=== PATIENT | female | born 1995 | race Caucasian/White ===

== ENCOUNTER 2016-06-19 22:44 | Inpatient (IN) | payer OTHER ==
[2016-06-20 00:23] LABS: Basophils # (A) 0.1 k/uL (0-0.2); Basophils % (A) 1 %; CH 29.7; CHCM 33.6; Eosinophils # (A) 0.3 k/uL (0-0.7); Eosinophils % (A) 3 %; HCT 41.7 % (34.0-46.0); HDW 2.49; Luc # (Auto) 0.09; Luc % (Auto) 1; Lymphocytes # (A) 3.8 k/uL (1.0-4.8); Lymphocytes % (A) 40 %; MCH 29.6 pg (25.0-35.0); MCHC 33.4 g/dL (31.0-37.0); MCV 88.6 fL (80.0-100.0); Mean Platelet Volume 6.7; Monocytes # (A) 0.3 k/uL (0-1.0); Monocytes % (A) 3 %; Neutrophils % (A) 52 %; RDW 13.7 % (11.5-15.5); WBC 9.6 k/uL (4.0-11.0); WBC (Perox) 9.69
[2016-06-20] MEDS ORDERED: ONDANSETRON 4 MG/2 ML VIAL IVP STA (00:30)
[2016-06-20 00:31] LABS: Appearance,Urine Cloudy (Clear); Bacteria,Urine Occasional /hpf; Bilirubin,Urine Negative (Negative); Glucose,Urine (UA) Negative (Negative); Ketones,Urine Negative (Negative); Leukocyte Esterase,Urine Large (Negative); Nitrite,Urine Negative (Negative); Particle Count 9487; Protein,Urine Trace (Negative); RBC,Urine 1 /hpf (0-5); Specific Gravity,Urine 1.017 (1.001-1.035); Squamous Epithelial Cell,Urine 20 /hpf (0-4); UA Billing (MACRO vs. MICRO) MICRO; Urobilinogen,Urine <2.0 mg/dL (<2.0); WBC,Urine 6 /hpf (0-5)
[2016-06-20 00:32] LABS: Amylase <30 U/L (30-110); Anion Gap 12 mmol/L; Calcium 9.4 mg/dL (8.4-10.2); Carbon Dioxide 25 mmol/L (22-30); Chloride 105 mmol/L (98-107); Glucose 77 mg/dL (74-99); Non-African American GFR(MDRD) >60 (>60 ml/min/1.73 sqM); Sodium 142 mmol/L (137-145); Total Bilirubin 0.6 mg/dL (0.2-1.3); Total Protein 7.7 g/dL (6.3-8.2)
[2016-06-20 00:34] LABS: HGB 13.9 gm/dL (11.4-16.0)
[2016-06-20 00:48] LABS: HCG,Quantitative Serum <2.4 mIU/mL
[2016-06-20 00:49] LABS: ALT 35 U/L (9-52); AST 32 U/L (14-36); Alkaline Phosphatase 77 U/L (38-126); Blood Urea Nitrogen 15 mg/dL (7-17); Potassium 4.7 mmol/L (3.5-5.1)
[2016-06-20] MEDS ORDERED: MORPHINE SULFATE 4 MG/ML SYRINGE IV STA (00:58)
[2016-06-20] MEDS ORDERED: SODIUM CHLORIDE 0.9% 500 ML IV STA (00:58)
--- NOTE | 2016-06-20 01:39 | CT ---
EXAMINATION TYPE: CT abdomen pelvis wo con DATE OF EXAM: 06/20/2016 1:26 AM COMPARISON: 11/23/2014 HISTORY: Abd pain x2 hours CT DLP: 853.00 mGycm Automated exposure control for dose reduction was used. TECHNIQUE: Helical acquisition of images was performed from the lung bases through the pelvis. FINDINGS: Lung bases are clear. There is no pleural effusion. Heart size is normal. There is a small hiatal her ross. Liver spleen pancreas gallbladder appear normal. Bile ducts are not dilated. There is no adrenal mass. Kidneys have normal size and contour. There is no hydronephrosis. Ureters are not dilated. The re is a somewhat tubular structure in the right lower quadrant with calcifications at could be a thic kened appendix with appendicoliths. Bladder distends smoothly. There is no sign of a pelvic mass. I see no intestinal wall thickening. Th e bony structures are intact. There is no evidence of retroperitoneal adenopathy. IMPRESSION: THERE ARE FINDINGS OF A THICKENED APPENDIX THAT MEASURES MORE THAN 1 CM WITH PROBABLE APPENDICOLITHS. THERE IS MILD SURROUNDING INFLAMMATORY CHANGE AND THIS IS CONSISTENT WITH ACUTE APPENDICITIS THAT IS NEW COMPARED TO OLD EXAM. NO ABSCESS SEEN.
[2016-06-20] MEDS ORDERED: NALOXONE 0.4 MG/ML 1 ML VIAL IV PRN ×2 (01:53→10:36)
[2016-06-20] MEDS ORDERED: ONDANSETRON 4 MG/2 ML VIAL IVP PRN (01:53)
[2016-06-20] MEDS ORDERED: PIPERACILLIN-TAZOBACTAM 3.375 GM in DEXTROSE/WATER 1 50ML.BAG IVPB STA (01:56)
--- NOTE | 2016-06-20 01:58 | ED ---
Abdominal Pain HPI - General Chief Complaint: Abdominal Pain Stated Complaint: Abdominal Pain Time Seen by Provider: 06/19/16 23:33 Source: patient, RN notes reviewed Mode of arrival: ambulatory Limitations: no limitations - History of Present Illness Initial Comments: This patient is 20-year-old woman who presents with a complaint of having bilateral lower abdominal pain that developed approximately 2 hours prior to arrival while she was "just sitting." The patient indicates that the pain is severe, constant, and she has a difficult time characterizing it. She states it gets worse if she presses her abdomen and with some movements. She also started having nausea and has had a couple of episodes of vomiting without noticing any blood or bile. She states her last bowel movement was earlier and was normal. She denies any change in her urination. The patient did have a section delivery about 6 weeks ago, and states she had been doing well following that. She did have a period last week that seemed approximately normal. She states she did resume sexual activity, with the same partner and she has not been having any discharge or pain with intercourse. MD Complaint: abdominal pain -: hour(s) Location: LLQ, RLQ Radiation: none Migration to: no migration Severity: severe Quality: aching Consistency: constant Improves With: nothing Worsens With: movement, other (palpation) Associated Symptoms: nausea, vomiting - Related Data Home Medications Medication Instructions Recorded Confirmed Control Unknown 1 tab PO DAILY 06/19/16 06/19/16 Previous Rx's Medication Instructions Recorded HYDROcodone/APAP 7.5-325MG [[place] 1 tab PO Q6HR PRN #28 tab 06/21/16 7.5-325] Allergies Allergy/AdvReac Type Severity Reaction Status Date / Time No Known Allergies Allergy Verified 06/19/16 23:22 Review of Systems ROS Statement: Those systems with pertinent positive or pertinent negative responses have been documented in the HPI. ROS Other: All systems not noted in ROS Statement are negative. Constitutional: Denies: fever Respiratory: Denies: cough, dyspnea Cardiovascular: Denies: chest pain, palpitations, edema Gastrointestinal: Reports: abdominal pain, nausea, vomiting. Denies: diarrhea, constipation, hematemesis, melena, hematochezia Genitourinary: Denies: dysuria, hematuria, abnormal menses Musculoskeletal: Denies: back pain Neurological: Denies: headache, weakness, numbness Past Medical History Past Medical History: No Reported History Additional Past Medical History / Comment(s): miscarriage at 7 weeks, ectopic History of Any Multi-Drug Resistant Organisms: None Reported Past Surgical History: Adenoidectomy, Section, Tonsillectomy Past Anesthesia/Blood Transfusion Reactions: No Reported Reaction Past Psychological History: No Psychological Hx Reported Smoking Status: Never smoker Past Alcohol Use History: None Reported Past Drug Use History: None Reported - Past Family History Mother Family Medical History: No Reported History Father Family Medical History: Myocardial Infarction ([place]) General Exam Limitations: no limitations Course Vital Signs 06/19/16 06/20/16 06/20/16 23:35 00:38 01:50 Temperature 97.7 F 98.8 F 98.8 F Pulse Rate 60 78 85 Respiratory 18 20 16 Rate Blood Pressure 139/96 128/91 112/73 O2 Sat by Pulse 100 100 98 Oximetry 06/20/16 02:30 Temperature 99.1 F Pulse Rate 77 Respiratory 18 Rate Blood Pressure 120/83 O2 Sat by Pulse 99 Oximetry Medical Decision Making - Medical Decision Making Patient is 20-year-old woman with lower abdominal pain and heaviness on the exam. The workup does show probable appendicitis, and I discussed case with Dr. Siddiqui, who is a surgeon on-call and will admit the patient for probable appendectomy first thing. Patient maintained nothing by mouth and antibiotic coverage started. She is feeling slightly better with analgesics and antiemetics. - Lab Data Result diagrams: 06/20/16 00:10 06/20/16 00:10 Lab Results 06/20/16 06/20/16 06/20/16 Range/Units 00:10 00:10 00:10 WBC 9.6 (4.0-11.0) k/uL RBC 4.70 (3.80-5.40) m/uL Hgb 13.9 D (11.4-16.0) gm/dL Hct 41.7 (34.0-46.0) % MCV 88.6 (80.0-100.0) fL MCH 29.6 (25.0-35.0) pg MCHC 33.4 (31.0-37.0) g/dL RDW 13.7 (11.5-15.5) % Plt Count 227 (150-450) k/uL Neutrophils % 52 % Lymphocytes % 40 % Monocytes % 3 % Eosinophils % 3 % Basophils % 1 % Neutrophils # 5.0 (1.3-7.7) k/uL Lymphocytes # 3.8 (1.0-4.8) k/uL Monocytes # 0.3 (0-1.0) k/uL Eosinophils # 0.3 (0-0.7) k/uL Basophils # 0.1 (0-0.2) k/uL Sodium 142 (137-145) mmol/L Potassium 4.7 (3.5-5.1) mmol/L Chloride 105 (98-107) mmol/L Carbon Dioxide 25 (22-30) mmol/L Anion Gap 12 mmol/L BUN 15 (7-17) mg/dL Creatinine 0.90 (0.52-1.04) mg/dL Est GFR (MDRD) Af Amer >60 (>60 ml/min/1.73 sqM) Est GFR (MDRD) Non-Af >60 (>60 ml/min/1.73 sqM) Glucose 77 (74-99) mg/dL Calcium 9.4 (8.4-10.2) mg/dL Total Bilirubin 0.6 (0.2-1.3) mg/dL AST 32 (14-36) U/L ALT 35 (9-52) U/L Alkaline Phosphatase 77 (38-126) U/L Total Protein 7.7 (6.3-8.2) g/dL Albumin 4.3 (3.5-5.0) g/dL Amylase <30 L (30-110) U/L Lipase 98 (23-300) U/L HCG, Quant <2.4 mIU/mL Urine Color Yellow Urine Appearance Cloudy H (Clear) Urine pH 7.0 (5.0-8.0) Ur Specific [place] 1.017 (1.001-1.035) Urine Protein Trace H (Negative) Urine Glucose (UA) Negative (Negative) Urine Ketones Negative (Negative) Urine Blood Trace H (Negative) Urine Nitrate Negative (Negative) Urine Bilirubin Negative (Negative) Urine Urobilinogen <2.0 (<2.0) mg/dL Ur Leukocyte Esterase Large H (Negative) Urine RBC 1 (0-5) /hpf Urine WBC 6 H (0-5) /hpf Ur Squamous Epith Cells 20 H (0-4) /hpf Urine Bacteria Occasional H (None) /hpf Blood Type Blood Type Recheck 06/20/16 Range/Units 00:20 WBC (4.0-11.0) k/uL RBC (3.80-5.40) m/uL Hgb (11.4-16.0) gm/dL Hct (34.0-46.0) % MCV (80.0-100.0) fL MCH (25.0-35.0) pg MCHC (31.0-37.0) g/dL RDW (11.5-15.5) % Plt Count (150-450) k/uL Neutrophils % % Lymphocytes % % Monocytes % % Eosinophils % % Basophils % % Neutrophils # (1.3-7.7) k/uL Lymphocytes # (1.0-4.8) k/uL Monocytes # (0-1.0) k/uL Eosinophils # (0-0.7) k/uL Basophils # (0-0.2) k/uL Sodium (137-145) mmol/L Potassium (3.5-5.1) mmol/L Chloride (98-107) mmol/L Carbon Dioxide (22-30) mmol/L Anion Gap mmol/L BUN (7-17) mg/dL Creatinine (0.52-1.04) mg/dL Est GFR (MDRD) Af Amer (>60 ml/min/1.73 sqM) Est GFR (MDRD) Non-Af (>60 ml/min/1.73 sqM) Glucose (74-99) mg/dL Calcium (8.4-10.2) mg/dL Total Bilirubin (0.2-1.3) mg/dL AST (14-36) U/L ALT (9-52) U/L Alkaline Phosphatase (38-126) U/L Total Protein (6.3-8.2) g/dL Albumin (3.5-5.0) g/dL Amylase (30-110) U/L Lipase (23-300) U/L HCG, Quant mIU/mL Urine Color Urine Appearance (Clear) Urine pH (5.0-8.0) Ur Specific [place] (1.001-1.035) Urine Protein (Negative) Urine Glucose (UA) (Negative) Urine Ketones (Negative) Urine Blood (Negative) Urine Nitrate (Negative) Urine Bilirubin (Negative) Urine Urobilinogen (<2.0) mg/dL Ur Leukocyte Esterase (Negative) Urine RBC (0-5) /hpf Urine WBC (0-5) /hpf Ur Squamous Epith Cells (0-4) /hpf Urine Bacteria (None) /hpf Blood Type A Positive Blood Type Recheck No Disposition Clinical Impression: Abdominal pain, Acute appendicitis Disposition: ADMITTED IP TO THIS [facility] Condition: Good
[2016-06-20 02:50] VITALS: BMI 32.1
[2016-06-20] MEDS: MORPHINE SULFATE 4 MG/ML SYRINGE IV PRN ×4 (03:57→20:46)
[2016-06-20] MEDS: SODIUM CHLORIDE 0.9% 1,000 ML IV SCH ×3 (03:58→22:32)
[2016-06-20] MEDS: PANTOPRAZOLE 40 MG/10 ML VIAL IV SCH (08:05)
[2016-06-20] MEDS ORDERED: IV FLUID CONTINUATION 1,000 ML IV ONE (08:34)
[2016-06-20] MEDS ORDERED: ONDANSETRON 4 MG/2 ML VIAL IVP ONE (09:15)
[2016-06-20] MEDS ORDERED: SCOPOLAMINE 1.5MG/72HR PATCH TRANSDERM ONE (09:15)
[2016-06-20] MEDS ORDERED: DEXAMETHASONE SOD PHOS (MDV) 100 MG/10 ML VIAL IVP ONE (09:15)
--- NOTE | 2016-06-20 09:36 | P.GSHP ---
History of Present Illness H&P Date: 06/20/16 Chief Complaint: Appendicitis This a 20-year-old female who presents emergency room last night with complaints of right lower quadrant pain. The patient had a CAT scan performed which showed evidence appendicitis. The patient is presently 6 weeks from . - Constitutional Constitutional: Reports as per HPI Past Medical History Past Medical History: No Reported History Additional Past Medical History / Comment(s): miscarriage at 7 weeks, ectopic History of Any Multi-Drug Resistant Organisms: None Reported Past Surgical History: Adenoidectomy, Section, Tonsillectomy Past Anesthesia/Blood Transfusion Reactions: No Reported Reaction Past Psychological History: No Psychological Hx Reported Smoking Status: Never smoker Past Alcohol Use History: None Reported Past Drug Use History: None Reported - Past Family History Mother Family Medical History: No Reported History Father Family Medical History: Myocardial Infarction ([place]) Medications and Allergies Home Medications Medication Instructions Recorded Confirmed Type Control Unknown 1 tab PO DAILY 06/19/16 06/19/16 History Allergies Allergy/AdvReac Type Severity Reaction Status Date / Time No Known Allergies Allergy Verified 06/19/16 23:22 Surgical - Exam Vital Signs Temp Pulse Resp BP Pulse Ox 97.7 F 60 18 139/96 100 06/19/16 23:35 06/19/16 23:35 06/19/16 23:35 06/19/16 23:35 06/19/16 23:35 - General well developed, no distress - Eyes PERRL - ENT normal pinna - Neck no masses - Respiratory normal expansion - Cardiovascular Rhythm: regular - Abdomen Right lower quadrant pain Abdomen: soft Results - Labs 06/20/16 00:10 06/20/16 00:10 - Imaging CT scan - chest: report reviewed (CT shows evidence of dilated appendix) Assessment and Plan Plan: Acute appendicitis. We will perform laparoscopic appendectomy.
[2016-06-20] MEDS ORDERED: MIDAZOLAM 2 MG/2 ML VIAL IVP ONE (09:45)
[2016-06-20] MEDS ORDERED: fentaNYL (PF) 50 MCG/ML 2 ML AMP IV ONE (09:46)
[2016-06-20] MEDS ORDERED: HEPARIN SODIUM,PORCINE 5,000 UNIT/ML 1 ML VIAL SQ ONE (09:59)
[2016-06-20] MEDS ORDERED: KETOROLAC 30 MG/ML 1 ML VIAL ONE (10:00)
[2016-06-20] MEDS ORDERED: PROPOFOL 10 MG/ML 20 ML VIAL IV ONE (10:00)
[2016-06-20] MEDS ORDERED: GLYCOPYRROLATE 0.2 MG/ML 2 ML VIAL ONE (10:00)
[2016-06-20] MEDS ORDERED: LIDOCAINE 1% INJ 10MG/ML (20 ML MDV) ONE (10:00)
[2016-06-20] MEDS ORDERED: SUCCINYLCHOLINE CHLORIDE 100 MG/5 ML SYR IV ONE (10:00)
[2016-06-20] MEDS ORDERED: ROCURONIUM BROMIDE 10 MG/ML 10 ML VIAL IV ONE (10:00)
[2016-06-20] MEDS ORDERED: NEOSTIGMINE 1 MG/ML 10 ML VIAL ONE (10:00)
[2016-06-20] MEDS ORDERED: fentaNYL (PF) 50 MCG/ML 2 ML AMP ONE (10:00)
[2016-06-20] MEDS ORDERED: BUPIVACAIN-EPI 0.25%-1:200,000 30 ML VIAL SQ ONE (10:30)
[2016-06-20] MEDS ORDERED: LACTATED RINGERS 1,000 ML IV ONE (10:36)
--- NOTE | 2016-06-20 10:36 | P.OP ---
Date of Procedure: 06/20/16 Preoperative Diagnosis: Acute appendicitis Postoperative Diagnosis: Acute appendicitis Procedure(s) Performed: Laparoscopic appendectomy Anesthesia: ABAA Surgeon: Ronald Siddiqui Estimated Blood Loss (ml): 5 Pathology: other (Appendix) Condition: stable Disposition: PACU Description of Procedure: Harmonic appendectomy
[2016-06-20] MEDS: PIPERACILLIN-TAZOBACTAM 3.375 GM in DEXTROSE/WATER 1 50ML.BAG IVPB SCH ×2 (12:06→18:32)
[2016-06-20] MEDS ORDERED: HYDROcodone/APAP 5-325MG 1 EACH TAB PO PRN (20:16)
[2016-06-20] MEDS ORDERED: HYDROmorphone 1 MG/ML 1 ML SYRINGE IM PRN (20:56)
[2016-06-21] MEDS: PIPERACILLIN-TAZOBACTAM 3.375 GM in DEXTROSE/WATER 1 50ML.BAG IVPB SCH ×2 (02:08→13:18)
[2016-06-21] MEDS: HYDROcodone/APAP 5-325MG 1 EACH TAB PO PRN ×2 (06:29→13:16)
[2016-06-21 07:43] VITALS: RESP 20
[2016-06-21] MEDS: SODIUM CHLORIDE 0.9% 1,000 ML IV SCH (09:14)
--- NOTE | 2016-06-21 10:18 | P.DS ---
Providers Date of admission: 06/20/16 01:53 Expected date of discharge: 06/21/16 Attending physician: Ronald Siddiqui Primary care physician: Stated None Hospital Course: Patient is a 20-year-old female with medical history significant for , patient is 6 weeks . Patient presenting to the emergency department with complaints of right lower quadrant abdominal pain. CAT scan showed evidence of appendicitis. Patient underwent emergent laparoscopic appendectomy. Patient tolerated procedure well. Patient was noted to have a heart rate in the 40s to 50s with stable blood pressure control. No evidence of chest pain. Patient was felt stable for discharge to home with follow-up etiology consult in the outpatient setting. Discharge diagnoses: 1. Acute appendicitis status post laparoscopic appendectomy. The above impression and plan have been discussed and directed by Dr. Siddiqui. Parisa BLOUNT acting as scribe for Dr. Siddiqui. Pertinent Studies: Abdomen/pelvis CT Procedures: Laparoscopic appendectomy Patient Condition at Discharge: Good Plan - Discharge Summary New Discharge Prescriptions: HYDROcodone/APAP 7.5-325MG [[place] 7.5-325] 1 tab PO Q6HR PRN #28 tab PRN Reason: Pain Discharge Medication List Control Unknown 1 tab PO DAILY 06/19/16 [History] HYDROcodone/APAP 7.5-325MG [[place] 7.5-325] 1 tab PO Q6HR PRN #28 tab 06/21/16 [ Rx] Follow up Appointment(s)/Referral(s): Ronald Siddiqui MD [STAFF PHYSICIAN] - 1 Week [facility] [Provider Group] - 1 Week None,Stated [Primary Care Provider] - 1-2 days Patient Instructions/Handouts: Laparoscopic Appendectomy (DC) Activity/Diet/Wound Care/Special Instructions: No heavy lifting, pushing, or pulling items greater than 10 pounds. Regular diet Shower daily, no soaking in bath tubs, pools, or hot tubs. No driving while taking pain medication. Notify surgeon with any signs or symptoms of infection, increased pain, or not tolerating diet. Discharge Disposition: HOME SELF-CARE
[2016-06-21] MEDS: PANTOPRAZOLE 40 MG/10 ML VIAL IV SCH (13:10)
[2016-06-21 13:17] VITALS: BP 151/93; PULSE 64; TEMP 97.7
== END 2016-06-21 14:08 | disposition home or self-care (01) | DRG 343 ==
LOC: EC 22:44 → 6PED 06-20 01:53
PROVIDERS: ADMIT Surgery; ATTEND Surgery
PROC: 0DTJ4ZZ Resection of Appendix, Percutaneous Endoscopic Approach (ICD-10-PCS; principal; 2016-06-20 08:30)
DX: K35.80 Unspecified acute appendicitis (principal); Z79.3 Long term (current) use of hormonal contraceptives
CPT/HCPCS: 36415; 74176; 80053; 81001; 81025; 82150; 83690; 84702; 85025; 86900; 86901; 88304; 96361; 96375; 99285

== ENCOUNTER → 2018-01-07 | Outpatient (CLI) | payer MEDICAID ==
[2018-01-07 16:41] LABS: HGB 14.5 gm/dL (11.4-16.0); MCH 30.3 pg (25.0-35.0); MCHC 32.9 g/dL (31.0-37.0); Mean Platelet Volume 6.8; Platelet Count 226 k/uL (150-450); RBC 4.78 m/uL (3.80-5.40); RDW 13.2 % (11.5-15.5); WBC 10.3 k/uL (3.8-10.6)
[2018-01-07 16:49] LABS: Appearance,Urine Clear (Clear); Bacteria,Urine Moderate /hpf; Bilirubin,Urine Negative (Negative); Blood,Urine Negative (Negative); Color,Urine Colorless; Glucose 80 mg/dL (74-99); Glucose,Urine (UA) Negative (Negative); Ketones,Urine Negative (Negative); Leukocyte Esterase,Urine Small (Negative); Mucus,Urine Rare /hpf; Nitrite,Urine Negative (Negative); PH, Urine 6.5 (5.0-8.0); Protein,Urine Negative (Negative); RBC,Urine 1 /hpf (0-5); Specific Gravity,Urine 1.003 (1.001-1.035); Squamous Epithelial Cell,Urine 1 /hpf (0-4); Urobilinogen,Urine <2.0 mg/dL (<2.0); WBC,Urine 1 /hpf (0-5)
[2018-01-08 05:02] LABS: HIV 1 AB Non-Reactive (Non-Reactive); HIV AB P24 Non-Reactive (Non-Reactive); HIV P24 AG Non-Reactive (Non-Reactive)
--- NOTE | 2018-01-08 08:21 | US ---
EXAMINATION TYPE: Transabdominal DATE OF EXAM: 08/13/17 COMPARISON: NONE CLINICAL HISTORY: Z36 Confirm Dates. Confirm dates, patient states Dr. Gambino thinks she is too cooper y because he could not get heart tones in the office. EXAM PERFORMED: Transvaginal (TV) and Transabdominal (TA) EXAM MEASUREMENTS: GESTATIONAL AGE / DATING Physician Established: Not established yet Dates by LMP: Unknown Dates by First Scan: This is 1st scan Dates by Current Scan for: By gestational sac measurement ( 5 weeks/6 days) EDC: 09/03/2018 MATERNAL ANATOMY Uterus: 12.0 x 5.0 x 5.9cm Right Ovary: 3.5 x 2.6 x 2.1cm Left Ovary: not seen due to overlying bowel gas Post CDS / Adnexa: small amount of free fluid in posterior cul de sac Presence of free fluid: yes Presence of corpus luteal cyst: not seen GESTATION / SURVEY No pole or yolk sac seen at this time MSD: 1.5cm (5 weeks/6 days) Date of LMP: Unknown Beta HcG (if available): Not available at time of exam. IMPRESSION: 1. Possible intrauterine gestation estimated at 5 weeks 6 days gestation based on the mean sac diamet er. pole and yolk sac are not identified at this time. Ectopic and blighted ovum jamshid in within the differential. Correlation with beta-hCG and follow-up is recommended.
[2018-01-09 16:22] LABS: C. trachomatis,PCR Negative (Neg,Equiv); Chlamydia trachomatis Source Urine; N. gonorrhoeae,PCR Negative (Neg,Equiv); Neisseria Source Urine
== END | disposition home or self-care (01) ==
LOC: RADUSWWP 15:16
PROVIDERS: ATTEND Obstetrics & Gynecology
DX: O26.811 Pregnancy related exhaustion and fatigue, first trimester (principal); Z3A.00 Weeks of gestation of pregnancy not specified
CPT/HCPCS: 76801; 76817; 81001; 82565; 82947; 85027; 86762; 86780; 86850; 86900; 86901; 87077; 87086; 87186; 87340; 87390; 87491; 87591

== ENCOUNTER → 2018-01-08 | Outpatient (CLI) | payer MEDICAID | END | disposition home or self-care (01) | LOC: LABWHC1 17:04 | PROVIDERS: ATTEND Obstetrics & Gynecology | DX: Z34.80 Encounter for supervision of other normal pregnancy, unspecified trimester (principal); Z3A.00 Weeks of gestation of pregnancy not specified | CPT/HCPCS: 36415; 84702 ==

== ENCOUNTER → 2018-01-10 | Outpatient (CLI) | payer MEDICAID | END | disposition home or self-care (01) | LOC: LABWHC1 14:34 | PROVIDERS: ATTEND Obstetrics & Gynecology | DX: Z34.80 Encounter for supervision of other normal pregnancy, unspecified trimester (principal); Z3A.00 Weeks of gestation of pregnancy not specified | CPT/HCPCS: 36415; 84702 ==

== ENCOUNTER 2018-01-25 14:04 | Observation (INO) | payer MEDICAID ==
[2018-01-25] MEDS ORDERED: SODIUM CHLORIDE 0.9% 1,000 ML IV ONE ×2 (14:23→17:04)
--- NOTE | 2018-01-25 14:27 | ED ---
General Adult HPI - General Chief complaint: Vaginal Bleeding Stated complaint: miscarrage, bleeding Time Seen by Provider: 01/25/18 14:22 Source: patient, EMS, RN notes reviewed Mode of arrival: EMS Limitations: no limitations - History of Present Illness Initial comments: Patient is a pleasant 22-year-old female presenting to the emergency Department with vaginal bleeding. Patient was approximately 7 weeks . Patient is G4, P1, A2(1 ectopic). Patient did see her doctor one or 2 weeks ago and was told probable miscarriage. Patient states on ultrasound they did see an intrauterine sac however no heartbeat. Patient did have some spotting 4 days ago. Around 1:00 today patient started with significant bleeding. EMS estimated patient lost approximately 2 L of blood. Patient did become hypotensive with EMS with a blood pressure as low as 64 systolic. Patient was given 2 L of fluid as well as 1 dose of epinephrine. Patient states she is having pelvic pain that is cramping and intermittent and somewhat severe at times. - Related Data Home Medications Medication Instructions Recorded Confirmed Acetaminophen [Tylenol] 1,000 mg PO Q4-6H PRN 01/25/18 01/25/18 Eye Lubricant Combination No.1 1 applic BOTH EYES DAILY PRN 01/25/18 01/25/18 [[place]] Allergies Allergy/AdvReac Type Severity Reaction Status Date / Time No Known Allergies Allergy Verified 01/25/18 14:37 Review of Systems ROS Statement: Those systems with pertinent positive or pertinent negative responses have been documented in the HPI. ROS Other: All systems not noted in ROS Statement are negative. Constitutional: Denies: fever Eyes: Denies: eye pain ENT: Denies: ear pain Respiratory: Denies: cough Cardiovascular: Denies: chest pain Endocrine: Denies: fatigue Gastrointestinal: Reports: abdominal pain (Lower abdominal/pelvic) Genitourinary: Denies: dysuria Musculoskeletal: Denies: back pain Skin: Denies: rash Neurological: Denies: weakness Past Medical History Past Medical History: No Reported History Additional Past Medical History / Comment(s): miscarriage at 7 weeks, ectopic History of Any Multi-Drug Resistant Organisms: None Reported Past Surgical History: Adenoidectomy, Appendectomy, Section, Tonsillectomy Past Anesthesia/Blood Transfusion Reactions: No Reported Reaction Past Psychological History: No Psychological Hx Reported Smoking Status: Never smoker Past Alcohol Use History: None Reported Past Drug Use History: None Reported - Past Family History Mother Family Medical History: No Reported History Father Family Medical History: Myocardial Infarction ([place]) General Exam Limitations: no limitations General appearance: alert Head exam: Present: atraumatic Eye exam: Present: normal appearance, PERRL ENT exam: Present: normal oropharynx Neck exam: Present: normal inspection Respiratory exam: Present: normal lung sounds bilaterally Cardiovascular Exam: Present: regular rate, normal rhythm Expanded Peripheral pulses: 2+: Radial (R), Radial (L), Dorsalis Pedis (R), Dorsalis Pedis (L) GI/Abdominal exam: Present: soft, tenderness (Mild to moderate tenderness lower abdomen), normal bowel sounds. Absent: distended, guarding, rebound, rigid, pulsatile mass External exam: Present: normal external exam Speculum exam: Present: vaginal bleeding By manual exam: Present: cervical motion tenderness, adnexal tenderness. Absent : adnexal mass Extremities exam: Present: normal inspection Neurological exam: Present: alert Psychiatric exam: Present: normal affect, normal mood Skin exam: Present: normal color Course Vital Signs 01/25/18 01/25/18 01/25/18 14:05 14:15 14:27 Temperature 99 F Pulse Rate 102 H 90 87 Respiratory 20 18 18 Rate Blood Pressure 156/89 117/66 120/61 O2 Sat by Pulse 100 98 99 Oximetry 01/25/18 15:04 Temperature Pulse Rate 87 Respiratory Rate Blood Pressure 123/80 O2 Sat by Pulse 100 Oximetry - Reevaluation(s) Reevaluation #1: 01/25/18 14:30 Dr. Santos updated on case EKG Findings - EKG Comments: EKG Findings:: Normal sinus rhythm 91. [place] 160. QRS 76. QT 390. QTC 479. Normal axis. Normal QRS. No acute ST change. Medical Decision Making - Medical Decision Making Case again discussed with Dr. Santos who will come evaluate patient and likely take for D&C. - Lab Data Result diagrams: 01/25/18 14:15 01/25/18 14:15 Lab Results 01/25/18 01/25/18 01/25/18 Range/Units 14:15 14:15 14:15 WBC 7.6 (3.8-10.6) k/uL RBC 4.08 (3.80-5.40) m/uL Hgb 12.4 (11.4-16.0) gm/dL Hct 37.3 (34.0-46.0) % MCV 91.4 (80.0-100.0) fL MCH 30.3 (25.0-35.0) pg MCHC 33.2 (31.0-37.0) g/dL RDW 12.8 (11.5-15.5) % Plt Count 192 (150-450) k/uL Neutrophils % 55 % Lymphocytes % 37 % Monocytes % 4 % Eosinophils % 2 % Basophils % 0 % Neutrophils # 4.2 (1.3-7.7) k/uL Lymphocytes # 2.8 (1.0-4.8) k/uL Monocytes # 0.3 (0-1.0) k/uL Eosinophils # 0.1 (0-0.7) k/uL Basophils # 0.0 (0-0.2) k/uL PT 11.6 (9.0-12.0) sec INR 1.2 H (<1.2) APTT 20.7 L (22.0-30.0) sec Sodium 141 (137-145) mmol/L Potassium 3.9 (3.5-5.1) mmol/L Chloride 112 H (98-107) mmol/L Carbon Dioxide 19 L (22-30) mmol/L Anion Gap 10 mmol/L BUN 9 (7-17) mg/dL Creatinine 0.57 (0.52-1.04) mg/dL Est GFR (CKD-EPI)AfAm >90 (>60 ml/min/1.73 sqM) Est GFR (CKD-EPI)NonAf >90 (>60 ml/min/1.73 sqM) Glucose 110 H (74-99) mg/dL Calcium 8.8 (8.4-10.2) mg/dL Total Bilirubin 1.0 (0.2-1.3) mg/dL AST 20 (14-36) U/L ALT 19 (9-52) U/L Alkaline Phosphatase 45 (38-126) U/L Total Protein 6.4 (6.3-8.2) g/dL Albumin 3.7 (3.5-5.0) g/dL HCG, Quant 1095.3 mIU/mL Blood Type Blood Type Recheck Antibody Screen Spec Expiration Date 01/25/18 Range/Units 14:15 WBC (3.8-10.6) k/uL RBC (3.80-5.40) m/uL Hgb (11.4-16.0) gm/dL Hct (34.0-46.0) % MCV (80.0-100.0) fL MCH (25.0-35.0) pg MCHC (31.0-37.0) g/dL RDW (11.5-15.5) % Plt Count (150-450) k/uL Neutrophils % % Lymphocytes % % Monocytes % % Eosinophils % % Basophils % % Neutrophils # (1.3-7.7) k/uL Lymphocytes # (1.0-4.8) k/uL Monocytes # (0-1.0) k/uL Eosinophils # (0-0.7) k/uL Basophils # (0-0.2) k/uL PT (9.0-12.0) sec INR (<1.2) APTT (22.0-30.0) sec Sodium (137-145) mmol/L Potassium (3.5-5.1) mmol/L Chloride (98-107) mmol/L Carbon Dioxide (22-30) mmol/L Anion Gap mmol/L BUN (7-17) mg/dL Creatinine (0.52-1.04) mg/dL Est GFR (CKD-EPI)AfAm (>60 ml/min/1.73 sqM) Est GFR (CKD-EPI)NonAf (>60 ml/min/1.73 sqM) Glucose (74-99) mg/dL Calcium (8.4-10.2) mg/dL Total Bilirubin (0.2-1.3) mg/dL AST (14-36) U/L ALT (9-52) U/L Alkaline Phosphatase (38-126) U/L Total Protein (6.3-8.2) g/dL Albumin (3.5-5.0) g/dL HCG, Quant mIU/mL Blood Type A Positive Blood Type Recheck No Antibody Screen NEGATIVE Spec Expiration Date 01/28/2018 - 4595 - Radiology Data Radiology results: report reviewed (Ultrasound of the pelvis shows intrauterine fluid collection 22 x 10 x 13 mm. This may be blighted ovum. No pole or yolk sac is seen.) Disposition Clinical Impression: Incomplete miscarriage Disposition: ADMITTED IP TO THIS HOSP Is patient prescribed a controlled substance at d/c from ED?: No Referrals: None,Stated [REFERRING] - 1-2 days Decision Time: 16:12
[2018-01-25 14:36] LABS: Basophils % (A) 0 %; Eosinophils # (A) 0.1 k/uL (0-0.7); Eosinophils % (A) 2 %; HCT 37.3 % (34.0-46.0); HGB 12.4 gm/dL (11.4-16.0); Lymphocytes # (A) 2.8 k/uL (1.0-4.8); Lymphocytes % (A) 37 %; MCH 30.3 pg (25.0-35.0); MCHC 33.2 g/dL (31.0-37.0); MCV 91.4 fL (80.0-100.0); Mean Platelet Volume 6.6; Monocytes # (A) 0.3 k/uL (0-1.0); Monocytes % (A) 4 %; Neutrophils # (A) 4.2 k/uL (1.3-7.7); Neutrophils % (A) 55 %; Platelet Count 192 k/uL (150-450); RBC 4.08 m/uL (3.80-5.40); RDW 12.8 % (11.5-15.5); WBC 7.6 k/uL (3.8-10.6)
[2018-01-25 14:48] LABS: ALT 19 U/L (9-52); AST 20 U/L (14-36); Albumin 3.7 g/dL (3.5-5.0); Alkaline Phosphatase 45 U/L (38-126); Anion Gap 10 mmol/L; Blood Urea Nitrogen 9 mg/dL (7-17); Calcium 8.8 mg/dL (8.4-10.2); Carbon Dioxide 19 mmol/L (22-30); Chloride 112 mmol/L (98-107); Glucose 110 mg/dL (74-99); Potassium 3.9 mmol/L (3.5-5.1); Sodium 141 mmol/L (137-145); Total Protein 6.4 g/dL (6.3-8.2)
[2018-01-25 14:52] LABS: INR 1.2 (<1.2); Partial Thromboplastin Time 20.7 sec (22.0-30.0); Prothrombin Time 11.6 sec (9.0-12.0)
[2018-01-25 15:04] LABS: HCG,Quantitative Serum 1095.3 mIU/mL
--- NOTE | 2018-01-25 15:23 | US ---
EXAMINATION TYPE: Transabdominal DATE OF EXAM: 08/13/17 COMPARISON: 01/07/2018 CLINICAL HISTORY: pain. Bleeding and pelvic pain x half hour EXAM PERFORMED: Transvaginal (TV) and Transabdominal (TA) EXAM MEASUREMENTS: GESTATIONAL AGE / DATING Physician Established: Not established yet ( weeks/ days) EDC: Dates by LMP: Unknown Dates by First Scan: By gestational sac measurement (5 weeks/6 days) EDC: 09/03/2018 Dates by Current Scan for: By gestational sac measurement ( 5 weeks/5 days) EDC: 09/22/2018 MATERNAL ANATOMY Uterus: 11.5 x 5.0 x 4.8cm, enlarged Right Ovary: not seen due to overlying bowel and limitations described below Left Ovary: not seen due to overlying bowel and limitations described below Post CDS / Adnexa: wnl Presence of free fluid: no Presence of corpus luteal cyst: not seen Presence of subchorionic bleed: no GESTATION / SURVEY No pole or yolk sac seen MSD: 1.5cm (5 weeks/5 days) Date of LMP: Unknown Beta HcG (if available): Not available at time of exam Difficult and limited study due to patient in a lot of pain and exam done bedside in ER trauma room . IMPRESSION: There is intrauterine fluid collection consistent with a gestational sac that measures 22 x 10 x 13 m m. No pole or yolk sac is seen. This could be a blighted ovum. Follow-up exam is recommended in 14 days to confirm a living fetus if clinically indicated.
[2018-01-25] MEDS ORDERED: MORPHINE SULFATE 4 MG/ML SYRINGE IV STA (16:00)
[2018-01-25] MEDS ORDERED: ONDANSETRON 4 MG/2 ML VIAL IVP STA (16:30)
[2018-01-25] MEDS ORDERED: METOCLOPRAMIDE 5 MG/ML 2 ML VIAL IVP STA (17:25)
[2018-01-25] MEDS ORDERED: SUCCINYLCHOLINE CHLORIDE 100 MG/5 ML SYR IV ONE (17:57)
[2018-01-25] MEDS ORDERED: LIDOCAINE 1% INJ 10MG/ML (20 ML MDV) ONE (17:57)
[2018-01-25] MEDS ORDERED: fentaNYL (PF) 50 MCG/ML 2 ML AMP ONE (17:57)
[2018-01-25] MEDS ORDERED: ONDANSETRON 4 MG/2 ML VIAL ONE (17:57)
[2018-01-25] MEDS ORDERED: MIDAZOLAM 2 MG/2 ML VIAL ONE (17:57)
[2018-01-25] MEDS ORDERED: DEXAMETHASONE SOD PHOS (MDV) 100 MG/10 ML VIAL ONE (17:57)
[2018-01-25] MEDS ORDERED: PROPOFOL 10 MG/ML 20 ML VIAL IV ONE (17:57)
[2018-01-25] MEDS ORDERED: IV FLUID CONTINUATION 900 ML IV ONE (17:57)
--- NOTE | 2018-01-25 18:21 | P.HPOB ---
History of Present Illness H&P Date: 01/25/18 Chief Complaint: Missed AB Mancini is a 22-year-old female at approximately 5 weeks gestation or 6 weeks gestation by ultrasound that is having very heavy bleeding due to incomplete miscarriage. We've known that her beta hCGs have been following for last several days and last check was down to 3000, today it is down to 1000. However this afternoon she began having very heavy bleeding and passing large clots and had severe pain with the symptoms. Due to the amount of blood loss and pain she was brought to the emergency room at initially apparently was very hypotensive and required IV resuscitation as well as medications for blood pressure initially. Once in the emergency room bleeding slowed and her symptoms started to iesha. However over the next 45 minutes to hours she began having severe cramping pain and persistent nausea and vomiting following administration of morphine. It is unclear if the morphine caused her vomiting or if it was due to her pain, which she described to me she stated that she was not feeling nauseous she just kept having to throw up. Her past medical history otherwise is unremarkable past surgical history appendectomy. She does have a history of a ectopic but this was treated with methotrexate. Family history is unremarkable. ALLERGIES none. Social history is unremarkable. On physical exam vital signs are stable and she is afebrile. Heart regular, lungs clear, extremities without pain. Blood pressure is normal in the 140s over 70s. And her heart rate is in the 70s to 80s. Pelvic exam was done deliver the neck visualize however was significant quantity of blood and clot in the vagina therefore we will move forward with a suction D&C. Risks benefits alternatives reviewed with the patient in detail and all questions were answered for her prior to proceeding to the operating room and these did include bleeding and infection possible need further surgeries, as well as potential perforation. Past Medical History Past Medical History: No Reported History Additional Past Medical History / Comment(s): miscarriage at 7 weeks, ectopic History of Any Multi-Drug Resistant Organisms: None Reported Past Surgical History: Adenoidectomy, Appendectomy, Section, Tonsillectomy Past Anesthesia/Blood Transfusion Reactions: No Reported Reaction Past Psychological History: No Psychological Hx Reported Smoking Status: Never smoker Past Alcohol Use History: None Reported Past Drug Use History: None Reported - Past Family History Mother Family Medical History: No Reported History Father Family Medical History: Myocardial Infarction ([place]) Medications and Allergies Home Medications Medication Instructions Recorded Confirmed Type Acetaminophen [Tylenol] 1,000 mg PO Q4-6H PRN 01/25/18 01/25/18 History Eye Lubricant Combination No.1 1 applic BOTH EYES DAILY PRN 01/25/18 01/25/18 History [Freshkote] Ibuprofen [Motrin] 600 mg PO Q6HR PRN #30 tab 01/25/18 Rx Allergies Allergy/AdvReac Type Severity Reaction Status Date / Time No Known Allergies Allergy Verified 01/25/18 14:37 Exam Osteopathic Statement: *. No significant issues noted on an osteopathic structural exam other than those noted in the History and Physical/Consult. Vital Signs Temp Pulse Resp BP Pulse Ox 01/25/18 17:19 97.7 F 71 18 118/76 99 01/25/18 17:08 68 18 119/75 98 01/25/18 16:17 98.2 F 86 20 138/99 100 01/25/18 15:04 87 123/80 100 01/25/18 14:27 87 18 120/61 99 01/25/18 14:15 90 18 117/66 98 01/25/18 14:05 99 F 102 H 20 156/89 100 Intake and Output 01/25/18 01/25/18 01/25/18 06:59 14:59 22:59 Other: Weight 74.843 kg Results Result Diagrams: 01/25/18 14:15 01/25/18 14:15 Abnormal Lab Results - Last 24 Hours (Table) 01/25/18 01/25/18 Range/Units 14:15 14:15 INR 1.2 H (<1.2) APTT 20.7 L (22.0-30.0) sec Chloride 112 H (98-107) mmol/L Carbon Dioxide 19 L (22-30) mmol/L Glucose 110 H (74-99) mg/dL
--- NOTE | 2018-01-25 18:23 | P.OP ---
Date of Procedure: 01/25/18 Preoperative Diagnosis: Incomplete AB Postoperative Diagnosis: Same Procedure(s) Performed: Suction D&C Anesthesia: ABAA Surgeon: Gerry Gambino Estimated Blood Loss (ml): 200 Pathology: other (Products of conception) Condition: stable Disposition: floor Operative Findings: Pathology is pending. There was very limited products of conception with the suction D&C despite several passes with the suction tip curette Description of Procedure: Patient was taken to the operating suite where a general anesthetic was found be adequate. She was prepped and draped draped in the normal sterile fashion and placed in the dorsal lithotomy position. Initially weighted speculum was inserted into the vagina and following clearing of clots from the vagina into lip of the cervix identified grasped with single-tooth tenaculum. Cervix was RE noted to be dilated therefore 9 curved tip suction curette was inserted and suction was applied. Multiple passes were done to remove blood and clot from the uterus. After 3 passes gentle sharp curettings of the endometrium were done and no products or tissue was felt to be present. Another 2 passes were performed with the suction tip curette in then the procedure was terminated with blood flow coming from the cervix minimally. Uterus was firm at this point and she was taken to the recovery room in stable and satisfactory condition. Sponge lap, needle counts all correct 2.
[2018-01-25] MEDS ORDERED: LACTATED RINGERS 1,000 ML IV ONE (18:26)
[2018-01-25 21:31] VITALS: RESP 16
[2018-01-25 21:32] VITALS: BP 118/74; PULSE 87; TEMP 97.9
== END 2018-01-25 20:45 | disposition home or self-care (01) ==
LOC: EC 14:04 → 6PED 17:04
PROVIDERS: ADMIT Obstetrics & Gynecology; ATTEND Obstetrics & Gynecology
DX: O03.4 Incomplete spontaneous abortion without complication (principal); Z3A.01 Less than 8 weeks gestation of pregnancy; O08.89 Other complications following an ectopic and molar pregnancy; I95.9 Hypotension, unspecified; O21.9 Vomiting of pregnancy, unspecified; Z90.49 Acquired absence of other specified parts of digestive tract; Z82.49 Family history of ischemic heart disease and other diseases of the circulatory system
CPT/HCPCS: 96361 ×4; 96375 ×3; 96374 ×2; 99285; 36415; 86900; 86901; 88305; 80053; 85025; 85610; 85730; 86850; 84702; 76801; 76817; G0378; J2250; J2270; J2765; J2405; J2001; J3010; J1100; J0330; J2704

== ENCOUNTER 2018-03-24 06:16 | Emergency (ER) | payer MEDICAID ==
[2018-03-24 07:05] LABS: Appearance,Urine Cloudy (Clear); Bacteria,Urine Many /hpf; Bilirubin,Urine Negative (Negative); Blood,Urine Negative (Negative); Color,Urine Light Yellow; Glucose,Urine (UA) Negative (Negative); Ketones,Urine Negative (Negative); Leukocyte Esterase,Urine Small (Negative); Mucus,Urine Rare /hpf; Nitrite,Urine Negative (Negative); Protein,Urine Negative (Negative); Specific Gravity,Urine 1.014 (1.001-1.035); Squamous Epithelial Cell,Urine 13 /hpf (0-4); Urobilinogen,Urine <2.0 mg/dL (<2.0); WBC,Urine 8 /hpf (0-5)
[2018-03-24] MEDS ORDERED: ONDANSETRON 4 MG/2 ML VIAL IVP STA (07:18)
[2018-03-24] MEDS ORDERED: SODIUM CHLORIDE 0.9% 1,000 ML IV STA (07:18)
[2018-03-24] MEDS ORDERED: FAMOTIDINE 20 MG/2 ML VIAL IV STA (07:19)
--- NOTE | 2018-03-24 07:26 | ED ---
General Adult HPI - General Chief complaint: Nausea/Vomiting/Diarrhea Stated complaint: vomiting Time Seen by Provider: 03/24/18 07:09 Source: patient, RN notes reviewed Mode of arrival: ambulatory Limitations: no limitations - History of Present Illness Initial comments: Patient is a 22-year-old female presented to the emergency room today with a chief complaint symptoms of nausea vomiting felt pain over the last 3 weeks. She does admit that symptoms seemed be coming and going. States also episodes of vomiting with no signs of blood. Patient does admit to a D&C approximately one month ago. Patient denies any other complaints or symptoms. Patient denies any recent fever, chills, shortness of breath, chest pain, back pain, numbness or tingling, constipation or diarrhea, headaches or visual changes, or any other complaints. - Related Data Home Medications Medication Instructions Recorded Confirmed Norgestimate-Ethinyl Estradiol 1 tab PO DAILY@0900 03/24/18 03/24/18 [Tri-Sprintec Tablet] Previous Rx's Medication Instructions Recorded Ondansetron Odt [Zofran ODT] 4 mg PO Q8HR PRN #20 tab 03/24/18 Allergies Allergy/AdvReac Type Severity Reaction Status Date / Time No Known Allergies Allergy Verified 03/24/18 08:10 Review of Systems ROS Statement: Those systems with pertinent positive or pertinent negative responses have been documented in the HPI. ROS Other: All systems not noted in ROS Statement are negative. Past Medical History Past Medical History: No Reported History Additional Past Medical History / Comment(s): miscarriage at 7 weeks, ectopic History of Any Multi-Drug Resistant Organisms: None Reported Past Surgical History: Adenoidectomy, Appendectomy, Section, Tonsillectomy Past Anesthesia/Blood Transfusion Reactions: No Reported Reaction Past Psychological History: No Psychological Hx Reported Smoking Status: Never smoker Past Alcohol Use History: None Reported Past Drug Use History: None Reported - Past Family History Mother Family Medical History: No Reported History Father Family Medical History: Myocardial Infarction ([place]) General Exam - General Exam Comments Initial Comments: General: The patient is awake and alert Eye: Pupils are equal, round and reactive to light. Extra-ocular movements are intact. No nystagmus. There is normal conjunctiva bilaterally. No signs of icterus. Ears, nose, mouth and throat: There are moist mucous membranes and no oral lesions. Neck: The neck is supple, there is no tenderness or JVD. Cardiovascular: There is a regular rate and rhythm. No murmur, rub or gallop is appreciated. Respiratory: Lungs are clear to auscultation, respirations are non-labored, breath sounds are equal. No wheezes, stridor, rales, or rhonchi. Gastrointestinal: Patient does have periumbilical tenderness along with epigastric on exam. No rebound, guarding or CVA tenderness. Musculoskeletal: Normal ROM, no tenderness. Sensation intact. Strength 5/5. Pulses equal bilaterally 2+. Neurological: A&O x 3. CN II-XII intact, There are no obvious motor or sensory deficits. Coordination appears grossly intact. Speech is normal. Skin: Skin is warm and dry and no rashes or lesions are noted. Psychiatric: Cooperative, appropriate mood & affect, normal judgment. Limitations: no limitations Course Vital Signs 03/24/18 03/24/18 03/24/18 06:19 07:33 07:35 Temperature 98 F Pulse Rate 109 H 62 Respiratory 24 18 Rate Blood Pressure 147/106 108/75 O2 Sat by Pulse 99 98 96 Oximetry Medical Decision Making - Medical Decision Making Patient reexamined at this time shows no signs of distress. She is resting comfortable. Abdomen soft on palpation. Patient does admit to a D&C approximately 4 weeks ago. She has no active vaginal bleeding or discharge. Patient did have her follow-up with Dr. Tan. Patient feeling better after medications here the emergency room. Patient's labs been reviewed are unremarkable. Patient's vital stable. Patient will be discharged home with nausea medication for her symptoms advised follow-up family doctor over the next 2 days return if symptoms increase or worsen or for any other concerns. - Lab Data Result diagrams: 03/24/18 06:36 03/24/18 06:36 Lab Results 03/24/18 03/24/18 03/24/18 Range/Units 06:36 06:36 06:45 WBC 7.6 (3.8-10.6) k/uL RBC 4.59 (3.80-5.40) m/uL Hgb 12.1 (11.4-16.0) gm/dL Hct 37.5 (34.0-46.0) % MCV 81.8 D (80.0-100.0) fL MCH 26.4 (25.0-35.0) pg MCHC 32.2 (31.0-37.0) g/dL RDW 14.8 (11.5-15.5) % Plt Count 326 (150-450) k/uL Neutrophils % 56 % Lymphocytes % 33 % Monocytes % 7 % Eosinophils % 2 % Basophils % 1 % Neutrophils # 4.3 (1.3-7.7) k/uL Lymphocytes # 2.5 (1.0-4.8) k/uL Monocytes # 0.5 (0-1.0) k/uL Eosinophils # 0.2 (0-0.7) k/uL Basophils # 0.0 (0-0.2) k/uL Hypochromasia Moderate Poikilocytosis Slight Sodium 141 (137-145) mmol/L Potassium 3.9 (3.5-5.1) mmol/L Chloride 108 H (98-107) mmol/L Carbon Dioxide 22 (22-30) mmol/L Anion Gap 11 mmol/L BUN 12 (7-17) mg/dL Creatinine 0.70 (0.52-1.04) mg/dL Est GFR (CKD-EPI)AfAm >90 (>60 ml/min/1.73 sqM) Est GFR (CKD-EPI)NonAf >90 (>60 ml/min/1.73 sqM) Glucose 90 (74-99) mg/dL Calcium 8.8 (8.4-10.2) mg/dL Total Bilirubin 0.3 (0.2-1.3) mg/dL AST 23 (14-36) U/L ALT 26 (9-52) U/L Alkaline Phosphatase 76 (38-126) U/L Total Protein 7.6 (6.3-8.2) g/dL Albumin 4.1 (3.5-5.0) g/dL Amylase 47 (30-110) U/L Lipase 158 (23-300) U/L Urine Color Urine Appearance (Clear) Urine pH (5.0-8.0) Ur Specific [place] (1.001-1.035) Urine Protein (Negative) Urine Glucose (UA) (Negative) Urine Ketones (Negative) Urine Blood (Negative) Urine Nitrite (Negative) Urine Bilirubin (Negative) Urine Urobilinogen (<2.0) mg/dL Ur Leukocyte Esterase (Negative) Urine WBC (0-5) /hpf Ur Squamous Epith Cells (0-4) /hpf Urine Bacteria (None) /hpf Urine Mucus (None) /hpf Urine HCG, Qual Not Detected (Not Detectd) 03/24/18 Range/Units 06:45 WBC (3.8-10.6) k/uL RBC (3.80-5.40) m/uL Hgb (11.4-16.0) gm/dL Hct (34.0-46.0) % MCV (80.0-100.0) fL MCH (25.0-35.0) pg MCHC (31.0-37.0) g/dL RDW (11.5-15.5) % Plt Count (150-450) k/uL Neutrophils % % Lymphocytes % % Monocytes % % Eosinophils % % Basophils % % Neutrophils # (1.3-7.7) k/uL Lymphocytes # (1.0-4.8) k/uL Monocytes # (0-1.0) k/uL Eosinophils # (0-0.7) k/uL Basophils # (0-0.2) k/uL Hypochromasia Poikilocytosis Sodium (137-145) mmol/L Potassium (3.5-5.1) mmol/L Chloride (98-107) mmol/L Carbon Dioxide (22-30) mmol/L Anion Gap mmol/L BUN (7-17) mg/dL Creatinine (0.52-1.04) mg/dL Est GFR (CKD-EPI)AfAm (>60 ml/min/1.73 sqM) Est GFR (CKD-EPI)NonAf (>60 ml/min/1.73 sqM) Glucose (74-99) mg/dL Calcium (8.4-10.2) mg/dL Total Bilirubin (0.2-1.3) mg/dL AST (14-36) U/L ALT (9-52) U/L Alkaline Phosphatase (38-126) U/L Total Protein (6.3-8.2) g/dL Albumin (3.5-5.0) g/dL Amylase (30-110) U/L Lipase (23-300) U/L Urine Color Light Yellow Urine Appearance Cloudy H (Clear) Urine pH 6.0 (5.0-8.0) Ur Specific [place] 1.014 (1.001-1.035) Urine Protein Negative (Negative) Urine Glucose (UA) Negative (Negative) Urine Ketones Negative (Negative) Urine Blood Negative (Negative) Urine Nitrite Negative (Negative) Urine Bilirubin Negative (Negative) Urine Urobilinogen <2.0 (<2.0) mg/dL Ur Leukocyte Esterase Small H (Negative) Urine WBC 8 H (0-5) /hpf Ur Squamous Epith Cells 13 H (0-4) /hpf Urine Bacteria Many H (None) /hpf Urine Mucus Rare H (None) /hpf Urine HCG, Qual (Not Detectd) Disposition Clinical Impression: Nausea & vomiting Disposition: HOME SELF-CARE Condition: Good Instructions: Acute Nausea and Vomiting (ED) Additional Instructions: Please use medication as discussed. Please follow-up with family doctor in the next 2 days. Please return to emergency room if the symptoms increase or worsen or for any other concerns. Prescriptions: Ondansetron Odt [Zofran ODT] 4 mg PO Q8HR PRN #20 tab PRN Reason: Nausea Is patient prescribed a controlled substance at d/c from ED?: No Referrals: Dahlia Vazquez MD [Primary Care Provider] - 1-2 days Time of Disposition: 08:33
[2018-03-24 07:37] LABS: Basophils % (A) 1 %; Eosinophils # (A) 0.2 k/uL (0-0.7); Eosinophils % (A) 2 %; HCT 37.5 % (34.0-46.0); HGB 12.1 gm/dL (11.4-16.0); Hypochromasia Moderate; Lymphocytes # (A) 2.5 k/uL (1.0-4.8); Lymphocytes % (A) 33 %; MCH 26.4 pg (25.0-35.0); MCHC 32.2 g/dL (31.0-37.0); Mean Platelet Volume 7.3; Monocytes # (A) 0.5 k/uL (0-1.0); Monocytes % (A) 7 %; Neutrophils # (A) 4.3 k/uL (1.3-7.7); Neutrophils % (A) 56 %; Platelet Count 326 k/uL (150-450); Poikilocytosis Slight; RBC 4.59 m/uL (3.80-5.40); RDW 14.8 % (11.5-15.5); WBC 7.6 k/uL (3.8-10.6)
[2018-03-24 07:40] VITALS: RESP 18
[2018-03-24 07:43] LABS: MCV 81.8 fL (80.0-100.0)
[2018-03-24 07:51] LABS: ALT 26 U/L (9-52); AST 23 U/L (14-36); Albumin 4.1 g/dL (3.5-5.0); Alkaline Phosphatase 76 U/L (38-126); Amylase 47 U/L (30-110); Anion Gap 11 mmol/L; Blood Urea Nitrogen 12 mg/dL (7-17); Calcium 8.8 mg/dL (8.4-10.2); Carbon Dioxide 22 mmol/L (22-30); Chloride 108 mmol/L (98-107); Glucose 90 mg/dL (74-99); Lipase 158 U/L (23-300); Potassium 3.9 mmol/L (3.5-5.1); Sodium 141 mmol/L (137-145); Total Bilirubin 0.3 mg/dL (0.2-1.3); Total Protein 7.6 g/dL (6.3-8.2)
[2018-03-24 09:19] VITALS: BP 109/80; PULSE 67; TEMP 97.3
== END 2018-03-24 09:17 | disposition home or self-care (01) ==
LOC: EC 06:16
DX: R11.2 Nausea with vomiting, unspecified (principal); R10.815 Periumbilic abdominal tenderness; R10.816 Epigastric abdominal tenderness; Z79.3 Long term (current) use of hormonal contraceptives; Z90.49 Acquired absence of other specified parts of digestive tract
CPT/HCPCS: 36415; 80053; 82150; 83690; 85025; 81001; 81025; 99284; 96374; 96375; 96361 ×2; J2405

== ENCOUNTER → 2019-03-16 | Outpatient (CLI) | payer OTHER | END | disposition home or self-care (01) | LOC: LABWHC1 12:11 | PROVIDERS: ATTEND Obstetrics & Gynecology | DX: Z34.81 Encounter for supervision of other normal pregnancy, first trimester (principal); Z87.59 Personal history of other complications of pregnancy, childbirth and the puerperium | CPT/HCPCS: 36415; 84702 ==

== ENCOUNTER → 2019-03-17 | Outpatient (CLI) | payer OTHER ==
--- NOTE | 2019-03-17 15:46 | US ---
EXAMINATION TYPE: Transabdominal DATE OF EXAM: 03/17/2019 1:53 PM COMPARISON: NONE CLINICAL HISTORY: Z36 CONFIRM DATES; (C section delivery, prior right ectopic per michelle ent. EXAM PERFORMED: Transvaginal (TV) and Transabdominal (TA). TV US was performed to assess for p ole. EXAM MEASUREMENTS: GESTATIONAL AGE / DATING Physician Established: Not yet established Dates by LMP: (6 weeks/3 days) EDC: 11/07/2019 Dates by First Scan: No previous this is first scan Dates by Current Scan for: ( 5 weeks/6 days) EDC: 11/11/2019 MATERNAL ANATOMY Uterus: 10.0 x 5.3 x 3.6cm Right Ovary: 3.8 x 2.7 x 2.6cm Left Ovary: 3.8 x 3.6 x 1.1cm Post CDS / Adnexa: wnl Presence of free fluid: small amount noted medial to right ovary Presence of corpus luteal cyst: in right ovary = 2.7 x 2.0 x 2.1cm as involuting complex cyst Presence of subchorionic bleed: no GESTATION / SURVEY MSD: 1.5cm (5 weeks/6 days) Yolk Sac (normal less than 6mm): 2.6mm IUP: Single gestational sac and yolk sac is seen in early . No pole is seen at this t robin. Date of LMP: 01/31/2019 Beta HcG (if available): NA No pole is seen at this time. Tech findings called to Dr Gambino's Office at exam's end per physician's order. JJ Heterogeneous anteverted uterus with oval hypoechoic structure suspicious for a gestational sac and 2 mm hyperechoic structure suspicious for yolk sac. Small amount of free fluid near right ovary. Both ovaries are present without concerning extraovarian adnexal mass. Corpus luteal cyst suspected right ovary. IMPRESSION: Findings suggestive of too early to visualize intrauterine however spontaneous is the differential and ectopic is not included. Consider serial beta hCG and ultr asound follow-up.
== END | disposition home or self-care (01) ==
LOC: RADUSWWP 13:07
PROVIDERS: ATTEND Obstetrics & Gynecology
DX: Z36.9 Encounter for antenatal screening, unspecified (principal); Z87.59 Personal history of other complications of pregnancy, childbirth and the puerperium
CPT/HCPCS: 76801; 76817

== ENCOUNTER → 2019-03-27 | Outpatient (CLI) | payer OTHER ==
--- NOTE | 2019-03-28 15:04 | US ---
EXAMINATION TYPE: Transabdominal DATE OF EXAM: 03/27/2019 4:11 PM COMPARISON: US CLINICAL HISTORY: Z36 confirm dates. EXAM PERFORMED: Transabdominal (TA) EXAM MEASUREMENTS: GESTATIONAL AGE / DATING Physician Established: (7 weeks/2 days) EDC: 11/11/2019 Dates by LMP: (7 weeks/6 days) EDC: 11/07/2019 Dates by First Scan: (7 weeks/2 days) EDC: 11/11/2019 Dates by Current Scan for: (8 weeks/0 days) EDC: 11/06/2019 MATERNAL ANATOMY Uterus: 12.3 x 6.3 x 5.4cm Right Ovary: 4.1 x 3.0 x 2.5cm Left Ovary: 2.7 x 2.5 x 1.8cm Post CDS / Adnexa: wnl Presence of free fluid: no Presence of corpus luteal cyst: in right ovary = 2.3 x 1.9 x 1.8cm Presence of subchorionic bleed: no GESTATION / SURVEY CRL: 1.6cm (8 weeks/0 days) Yolk Sac (normal less than 6mm): 2.9mm Heart Rate: 170 bpm Rhythm: Normal IUP: single, live IUP Date of LMP: 01/31/2019 Single, live IUP, 8 weeks/0 days, EDC: 11/06/2019, HR 170bpm. IMPRESSION: Single live intrauterine with a sonographic age of 8 weeks and 0 days and estim ated date of delivery of 11/06/2019 concordant with menstrual age.
== END | disposition home or self-care (01) ==
LOC: RADUSWWP 15:50
PROVIDERS: ATTEND Obstetrics & Gynecology
DX: Z34.90 Encounter for supervision of normal pregnancy, unspecified, unspecified trimester (principal); Z3A.08 8 weeks gestation of pregnancy
CPT/HCPCS: 76801

== ENCOUNTER 2019-10-14 12:04 | Outpatient (CLI) | payer OTHER ==
[2019-10-14 12:49] LABS: Basophils % (A) 0 %; Eosinophils # (A) 0.2 k/uL (0-0.7); Eosinophils % (A) 2 %; HCT 36.9 % (34.0-46.0); HGB 12.4 gm/dL (11.4-16.0); Lymphocytes # (A) 2.1 k/uL (1.0-4.8); Lymphocytes % (A) 24 %; MCH 30.4 pg (25.0-35.0); MCHC 33.5 g/dL (31.0-37.0); MCV 90.8 fL (80.0-100.0); Mean Platelet Volume 8.4; Monocytes # (A) 0.5 k/uL (0-1.0); Monocytes % (A) 6 %; Neutrophils # (A) 5.9 k/uL (1.3-7.7); Neutrophils % (A) 67 %; Platelet Count 154 k/uL (150-450); RBC 4.07 m/uL (3.80-5.40); RDW 13.8 % (11.5-15.5); WBC 8.7 k/uL (3.8-10.6)
[2019-10-14 12:59] LABS: ALT 10 U/L (4-34); AST 23 U/L (14-36); African American GFR (CKD) >90 (>60 ml/min/1.73 sqM); Blood Urea Nitrogen 4 mg/dL (7-17); LDH 352 U/L (313-618); Non-African American GFR(CKD) >90 (>60 ml/min/1.73 sqM); Uric Acid 3.8 mg/dL (3.7-7.4)
[2019-10-14 13:06] LABS: Protein/Creatinine Ratio,Urine 0.202
[2019-10-14 13:16] LABS: Appearance,Urine Clear (Clear); Bacteria,Urine Many /hpf; Bilirubin,Urine Negative (Negative); Blood,Urine Negative (Negative); Color,Urine Light Yellow; Glucose,Urine (UA) Negative (Negative); Ketones,Urine 2+ (Negative); Leukocyte Esterase,Urine Large (Negative); Nitrite,Urine Positive (Negative); Protein,Urine Negative (Negative); RBC,Urine <1 /hpf (0-5); Specific Gravity,Urine 1.006 (1.001-1.035); Squamous Epithelial Cell,Urine 1 /hpf (0-4); Urobilinogen,Urine <2.0 mg/dL (<2.0); WBC,Urine 6 /hpf (0-5)
[2019-10-14 13:27] VITALS: BP 123/66; PULSE 83; RESP 18; TEMP 98.7
--- NOTE | 2019-10-18 08:25 | P.MSEPDOC ---
Presenting Problems - Arrival Data Date of Arrival on Unit: 10/14/19 Time of Arrival on Unit: 12:15 Mode of Transport: Ambulatory - Complaint OB-Reason for Admission/Chief Complaint: PIH Medical History - Information : 5 Para: 1 Number of Living Children: 1 - Gestational Age Gestational Age by MARISA (wks/days): 37 Weeks and 0 Days Review of Systems - Review of Systems Constitutional: No problems Breast: No problems ENT: No problems Cardiovascular: No problems Respiratory: No problems Gastrointestinal: No problems Genitourinary: No problems Musculoskeletal: No problems Neurological: No problems Skin: No problems Vital Signs - Temperature Temperature: 98.7 F Temperature Source: Oral - Pulse Right Sitting Brachial Pulse Rate: 83 Pulse Assessment Method: Automatic Cuff - Respirations Respiratory Rate: 18 Oxygen Delivery Method: Room Air - Blood Pressure Right Arm Sitting Blood Pressure: 123/66 Blood Pressure Mean: 85 Blood Pressure Source: Automatic Cuff Medical Screen Scoring (Pre) - Cervical Exam Dilation: Exam Deferred Effacement: Exam Deferred - Uterine Contractions Frequency: > or = 36 weeks =2 Duration: > 40 seconds = 2 Intensity: N/A - Maternal Vital Signs Maternal Temperature: N/A Maternal Blood Pressure: N/A Signs of Preeclampsia: N/A Maternal Respirations: N/A - Maternal Trauma Maternal Trauma: N/A - Assessment - Baby A Baseline FHR: 115 Heart Rate - NICHD Category: Category I (Normal) = 0 NST: Reactive Position: N/A Station: N/A - Total Score - Baby A Total Score - Baby A: 4 - Total Score - Baby B Total Score - Baby B: 4 - Total Score - Baby C Total Score - Baby C: 4 - Level of Risk - Baby A Level of Risk - Baby A: Low (0-5) - Level of Risk - Baby B Level of Risk - Baby B: Low (0-5) - Level of Risk - Baby C Level of Risk - Baby C: Low (0-5) Physician Notification (Pre) - Physician Notified Physician Notified Date: 10/14/19 Physician Notified Time: 13:26 New Order Received: Yes - Notification Comment Comment: dc home with script for antibiotic for UTI. Disposition - Disposition OB Disposition: Discharge to home Discharge Date: 10/14/19 Discharge Time: 13:27 I agree with the RN Medical Screening Exam: Yes Risk & Benefit of care provided described in d/c instruction: Yes Diagnosis: GESTATIONAL HTN W/O SIGNIFICANT PROTEINURIA, THIRD TRIMESTER
== END 2019-10-14 13:29 | disposition home or self-care (01) ==
LOC: FBPOP 12:04
PROVIDERS: ATTEND Obstetrics & Gynecology
DX: O13.3 Gestational [pregnancy-induced] hypertension without significant proteinuria, third trimester (principal); Z3A.37 37 weeks gestation of pregnancy
CPT/HCPCS: 59025; 81001; 82565; 82570; 83615; 84156; 84450; 84460; 84520; 84550; 85025

== ENCOUNTER 2019-11-04 06:06 | Inpatient (IN) | payer OTHER ==
[2019-11-04] MEDS ORDERED: CITRIC ACID-SODIUM CITRATE 15 ML CUP PO ONE (06:26)
[2019-11-04] MEDS ORDERED: LACTATED RINGERS 1,000 ML IV SCH ×2 (06:30→09:15)
[2019-11-04 06:37] LABS: Basophils % (A) 0 %; Eosinophils # (A) 0.3 k/uL (0-0.7); Eosinophils % (A) 3 %; HCT 40.3 % (34.0-46.0); HGB 13.4 gm/dL (11.4-16.0); Lymphocytes # (A) 2.9 k/uL (1.0-4.8); Lymphocytes % (A) 32 %; MCH 30.5 pg (25.0-35.0); MCHC 33.4 g/dL (31.0-37.0); MCV 91.4 fL (80.0-100.0); Mean Platelet Volume 8.3; Monocytes # (A) 0.5 k/uL (0-1.0); Monocytes % (A) 6 %; Neutrophils # (A) 5.1 k/uL (1.3-7.7); Neutrophils % (A) 57 %; Platelet Count 174 k/uL (150-450); RDW 14.1 % (11.5-15.5); WBC 8.9 k/uL (3.8-10.6)
[2019-11-04] MEDS ORDERED: ONDANSETRON 4 MG/2 ML VIAL ONE (08:21)
[2019-11-04] MEDS ORDERED: KETOROLAC 30 MG/ML 1 ML VIAL ONE (08:21)
[2019-11-04] MEDS ORDERED: OXYTOCIN 10 UNIT/ML 1 ML VIAL ONE (08:21)
[2019-11-04] MEDS ORDERED: ePHEDrine SULFATE/0.9% NACL/PF 50 MG/5 ML SYRINGE IV ONE (08:21)
[2019-11-04] MEDS ORDERED: MORPHINE SULFATE (PF) 0.3 MG/0.3 ML SYR ONE (08:21)
[2019-11-04] MEDS ORDERED: diphenhydrAMINE 50 MG CAP PO PRN (09:02)
[2019-11-04] MEDS ORDERED: HYDROcodone/APAP 7.5-325MG 1 EACH TAB PO PRN (09:02)
[2019-11-04] MEDS ORDERED: ACETAMINOPHEN TAB 325 MG TAB PO PRN (09:02)
[2019-11-04] MEDS ORDERED: NALOXONE 0.4 MG/ML 1 ML VIAL IV PRN (09:02)
[2019-11-04] MEDS ORDERED: diphenhydrAMINE 25 MG CAP PO PRN (09:02)
[2019-11-04] MEDS ORDERED: METOCLOPRAMIDE 5 MG/ML 2 ML VIAL IVP PRN (09:02)
[2019-11-04] MEDS ORDERED: diphenhydrAMINE 50 MG/ML 1 ML VIAL IVP PRN ×2 (09:02)
[2019-11-04] MEDS ORDERED: ZOLPIDEM 5 MG TAB PO PRN (09:02)
[2019-11-04] MEDS ORDERED: ONDANSETRON 4 MG/2 ML VIAL IVP PRN (09:02)
--- NOTE | 2019-11-04 09:07 | P.OP ---
Date of Procedure: 11/04/19 Preoperative Diagnosis: Intrauterine at term: Prior section Postoperative Diagnosis: Same Procedure(s) Performed: Repeat low transverse section Anesthesia: spinal Surgeon: Gerry Gambino Social Media Marketer #1: Kusum Banks Estimated Blood Loss (ml): 250 IV fluids (ml): 1,000 Urine output (ml): 350 Pathology: none sent Condition: stable Disposition: floor Operative Findings: Female scores of 9 and 9 at one and 5 minutes respectively and the weight was 7 lbs. 8 oz. Description of Procedure: Patient was taken to the operating suite where a spinal anesthetic was found be adequate. She was prepped and draped in the normal sterile fashion and placed in dorsal supine position with leftward tilt. Initially a Pfannenstiel skin incision was made and this incision was then carried through to underlying layer of the fascia second knife. Fascia was then nicked in midline and this opening was extended laterally with Cardona scissors. Superior and inferior aspect of this incision were then grasped tented up and bluntly and sharply dissected off the rectus muscles. Rectus muscles were then divided the midline and blunt dissection to the peritoneum was done. This opening was then extended superiorly and inferiorly with good visualization of both bowel bladder. Bladder blade was then placed and noting the bladder well below the incision line incision was made. This opening was then extended fully with hemostat and then bluntly. Head was then atraumatically delivered and mouth nares bulb suctioned. Interim posterior shoulders were then easily delivered followed by the remainder the baby. Umbilical cord was then clamped cut usual fashion with nursery present to assume care. Placenta was then delivered intact and Pitocin was added to the IV. Uterus was then exteriorized cleared of clots and debris and closed in 2 layers with 0 Vicryl suture. Once excellent hemostasis was obtained blood and debris was suctioned from the posterior cul-de-sac and uterus was reinserted into the abdomen. Gutters were then cleared and peritoneum was reapproximated with 0 Vicryl suture. Fascial layer was then closed with 0 Vicryl suture. 3-0 Vicryl placed in deep subcuticular tissues reapproximate the skin and close the space. Skin was then closed with 3-0 Vicryl subcuticular. Sponge, lap, needle counts were all correct 2. Patient was taken to the recovery room in stable and satisfactory condition.
--- NOTE | 2019-11-04 12:59 | P.HPOB ---
History of Present Illness H&P Date: 11/04/19 Chief Complaint: Intrauterine term: Prior section Erica is a 24-year-old G3 5 P1 at 39 weeks gestation arise for repeat section. Her course was, complicated by a urinary tract infection which she was unable to tolerate antibodies initially but on repeat sampling it appears that it didn't improve with what she was able to take. No other issues or problems were encountered during the and a repeat section is scheduled for today. Risks/benefits/alternatives were reviewed with the patient in detail including but what were not limited to damage to bladder/bowel/nerve injuries/ureteral injuries bleeding and infection as well as potentially further surgeries. A category 1 tracing is noted prior to proceeding to the operating room. Past Medical History Past Medical History: No Reported History Additional Past Medical History / Comment(s): miscarriage at 7 weeks, ectopic History of Any Multi-Drug Resistant Organisms: None Reported Past Surgical History: Adenoidectomy, Appendectomy, Section, Tonsillectomy Past Anesthesia/Blood Transfusion Reactions: No Reported Reaction Past Psychological History: No Psychological Hx Reported Smoking Status: Former smoker Past Alcohol Use History: None Reported Past Drug Use History: None Reported - Past Family History Mother Family Medical History: No Reported History, Asthma Father Family Medical History: Myocardial Infarction ([place]) Medications and Allergies Home Medications Medication Instructions Recorded Confirmed Type Pnv No.95/Ferrous Fum/Folic AC 1 each PO DAILY 10/14/19 10/14/19 History [ Multivitamin Tablet] Allergies Allergy/AdvReac Type Severity Reaction Status Date / Time No Known Allergies Allergy Verified 10/14/19 12:08 Exam Osteopathic Statement: *. No significant issues noted on an osteopathic structural exam other than those noted in the History and Physical/Consult. Vital Signs Temp Pulse Resp BP Pulse Ox 11/04/19 11:16 62 16 124/77 100 11/04/19 10:46 66 16 127/75 100 11/04/19 10:16 75 16 123/73 100 11/04/19 10:01 58 L 16 120/82 100 11/04/19 09:46 68 16 115/73 95 11/04/19 09:31 68 16 119/66 95 11/04/19 09:16 97.1 F L 77 16 123/60 97 11/04/19 06:25 96.7 F L 81 16 126/86 Intake and Output 11/03/19 11/04/19 11/04/19 22:59 06:59 14:59 Output Total 400 Balance -400 Output: Urine 400 Other: Voiding Method Indwelling Catheter Weight 87.09 kg - OBG Physical Exam Breast: both: normal (no masses) Abdomen: bowel sounds normal, no diffuse tenderness, no bruit present, no guarding noted, no hepatomegaly, no splenomegaly, no mass Vulva: both: normal Vagina: normal moisture, no discharge Cervix: no lesion, no discharge Uterus: normal size, normal contour Adnexa: both: normal Anus/Rectum: normal perianal skin, no rectal mass, no hemorrhoids, heme negative Results Result Diagrams: 11/04/19 06:26
[2019-11-04] MEDS: KETOROLAC 30 MG/ML 1 ML VIAL IVP PRN ×2 (15:34→21:39)
[2019-11-04] MEDS: SENNOSIDES-DOCUSATE SODIUM 1 EACH TAB PO SCH (20:01)
[2019-11-05] MEDS: KETOROLAC 30 MG/ML 1 ML VIAL IVP PRN (04:45)
[2019-11-05 06:18] LABS: Basophils % (A) 0 %; Eosinophils # (A) 0.2 k/uL (0-0.7); Eosinophils % (A) 2 %; Lymphocytes # (A) 2.3 k/uL (1.0-4.8); Lymphocytes % (A) 25 %; MCHC 32.4 g/dL (31.0-37.0); MCV 92.5 fL (80.0-100.0); Mean Platelet Volume 8.8; Monocytes # (A) 0.5 k/uL (0-1.0); Monocytes % (A) 6 %; Neutrophils % (A) 66 %; Platelet Count 138 k/uL (150-450); RBC 3.68 m/uL (3.80-5.40); RDW 14.5 % (11.5-15.5); WBC 9.1 k/uL (3.8-10.6)
--- NOTE | 2019-11-05 08:26 | P.PN ---
Progress Note - Text Progress Note Date: 11/05/19 (655AM) Patient is postop day 1 from section with Duramorph spinal. Pain score is 4/10. Patient denies nausea, vomiting, itching, headaches. Patient has ambulated.
--- NOTE | 2019-11-05 08:52 | P.PNOBGPC ---
Subjective - Subjective Principal diagnosis: Status post section postoperative day #1 Interval history: Patient is doing well. She is passing flatus. She denies any bowel movement yet. She is urinating without difficulty. Baby is bottle feeding. Lochia is decreasing. Patient reports: Reports appetite normal, Reports voiding normally, Reports pain well controlled, Reports ambulating normally [place]: doing well, bottle feeding Objective - Vital Signs Latest vital signs: Vital Signs Temp Pulse Resp BP Pulse Ox 11/05/19 04:00 98.0 F 63 14 107/65 97 11/05/19 00:00 98.0 F 73 14 121/72 98 11/04/19 20:00 97.8 F 81 14 132/83 99 11/04/19 16:00 97.8 F 66 16 126/74 99 11/04/19 11:16 62 16 124/77 100 11/04/19 10:46 66 16 127/75 100 11/04/19 10:16 75 16 123/73 100 11/04/19 10:01 58 L 16 120/82 100 11/04/19 09:46 68 16 115/73 95 11/04/19 09:31 68 16 119/66 95 11/04/19 09:16 97.1 F L 77 16 123/60 97 Intake and Output 11/04/19 11/05/19 11/05/19 22:59 06:59 14:59 Output Total 950 Balance -950 Output: Urine 950 Other: # Voids 1 2 - Exam Extremities: Present: normal. Absent: tenderness, edema Abdomen: Present: normal appearance, soft (Positive bowel sounds 4). Absent: distention, tenderness Incision: Present: normal, dry, intact. Absent: erythematous Uterus: Present: normal, firm. Absent: tenderness - Labs Labs: Abnormal Lab Results - Last 24 Hours (Table) 11/05/19 Range/Units 05:59 RBC 3.68 L (3.80-5.40) m/uL Hgb 11.0 L (11.4-16.0) gm/dL Plt Count 138 L (150-450) k/uL Assessment and Plan Assessment: Status post section postoperative day #1 Plan: Continue with postoperative care.
[2019-11-05] MEDS: SENNOSIDES-DOCUSATE SODIUM 1 EACH TAB PO SCH ×2 (09:51→20:35)
[2019-11-05] MEDS: IBUPROFEN 600 MG TAB PO PRN ×2 (15:29→22:02)
[2019-11-06] MEDS: IBUPROFEN 600 MG TAB PO PRN (03:51)
--- NOTE | 2019-11-06 06:54 | P.PNOBGPC ---
Subjective - Subjective Patient reports: Reports appetite normal, Reports voiding normally, Reports pain well controlled, Reports ambulating normally : doing well Objective - Vital Signs Latest vital signs: Vital Signs Temp Pulse Resp BP Pulse Ox 11/06/19 04:00 98.3 F 60 16 125/68 11/05/19 20:00 98.3 F 66 16 132/77 11/05/19 16:00 98.3 F 72 16 138/80 99 11/05/19 08:00 97.9 F 71 16 123/84 98 Intake and Output 11/05/19 11/05/19 11/06/19 14:59 22:59 06:59 Other: # Voids 2 1 - Exam Lungs: bilateral: normal Chest: Normal S1, Normal S2 Extremities: Present: normal Abdomen: Present: normal appearance, soft. Absent: distention, tenderness Incision: Present: normal, dry, intact Uterus: Present: normal, firm Assessment and Plan Assessment: Post operative day #2. Patient is resting without complaints and wishes to go home. Vital signs are stable she is afebrile. Her incision is intact and dry. Patient is tolerating regular diet, ambulating, urinating without difficulty. Patient is felt to be stable for discharge home follow up with Dr. Gambino as instructed. (1) delivery delivered Current Visit: Yes Status: Acute Code(s): O82 - ENCOUNTER FOR DELIVERY WITHOUT INDICATION SNOMED Code(s): 898624326
--- NOTE | 2019-11-06 07:00 | P.DS ---
Providers Date of admission: 11/04/19 06:06 Expected date of discharge: 11/06/19 Attending physician: Gerry Gambino Primary care physician: Stated None - Discharge Diagnosis(es) (1) delivery delivered Current Visit: Yes Status: Acute Hospital Course: Please see dictated H&P for intimate details of this patient's admission. Brief summary this is a 24-year-old 5 para 1 female 39-5/7 weeks gestation admitted to labor and delivery for elective repeat section. Patient undergoes above-named surgery for viable female infant. Please see dictated operative note. Postoperative patient does well and on postoperative 2 spelled be stable for discharge home follow up with Dr. Gambino in 1 week. Procedures: Repeat low transverse section Patient Condition at Discharge: Good Plan - Discharge Summary New Discharge Prescriptions: New Ibuprofen [Motrin] 600 mg PO Q6HR PRN #40 tab PRN Reason: Mild Pain Or Fever >= 100.5 HYDROcodone/APAP 7.5-325MG [[place] 7.5-325] 1 each PO Q6H PRN #12 tab PRN Reason: Severe Pain No Action Pnv No.95/Ferrous Fum/Folic AC [ Multivitamin Tablet] 1 each PO DAILY Discharge Medication List Pnv No.95/Ferrous Fum/Folic AC [ Multivitamin Tablet] 1 each PO DAILY 10/14/19 [History] HYDROcodone/APAP 7.5-325MG [[place] 7.5-325] 1 each PO Q6H PRN #12 tab 11/06/19 [Rx] Ibuprofen [Motrin] 600 mg PO Q6HR PRN #40 tab 11/06/19 [Rx] Follow up Appointment(s)/Referral(s): Gerry Gambino DO [Doctor of Osteopathic Medicine] - 11/17/19 2:30 pm (Please come in for your visit on December 17 at 10:30 as well.) Patient Instructions/Handouts: (DC) Activity/Diet/Wound Care/Special Instructions: No heavy lifting or strenuous activities for 6 weeks[address] No [address]. No intercourse or anything per vagina for 6 weeks. Please call if any fever, chills, excessive vaginal bleeding, and/or abdominal pain Discharge Disposition: HOME SELF-CARE
[2019-11-06 09:38] VITALS: BP 136/78; PULSE 76; RESP 18; TEMP 98.7
== END 2019-11-06 08:40 | disposition home or self-care (01) | DRG 788 ==
LOC: 4FBP 06:06
PROVIDERS: ADMIT Obstetrics & Gynecology; ATTEND Obstetrics & Gynecology
PROC: 10D00Z1 Extraction of Products of Conception, Low, Open Approach (ICD-10-PCS; principal; 2019-11-04 08:00)
DX: O34.211 Maternal care for low transverse scar from previous cesarean delivery (principal); Z37.0 Single live birth; Z3A.39 39 weeks gestation of pregnancy; Z82.49 Family history of ischemic heart disease and other diseases of the circulatory system; Z87.891 Personal history of nicotine dependence; Z87.440 Personal history of urinary (tract) infections
CPT/HCPCS: 85025; 86850; 86900; 86901

== ENCOUNTER → 2021-08-07 | Outpatient (CLI) | payer OTHER ==
[2021-08-07 18:08] LABS: Basophils # (A) 0.03 X 10*3/uL (0.00-0.10); Basophils % (A) 0.4 %; Eosinophils # (A) 0.26 X 10*3/uL (0.04-0.35); Eosinophils % (A) 3.8 %; HGB 14.1 g/dL (12.0-15.0); Immature Grans, Automated 0.3 %; Lymphocytes # (A) 3.42 X 10*3/uL (0.90-5.00); Lymphocytes % (A) 49.6 %; MCHC 32.8 g/dL (32.0-37.0); MCV 91.5 fL (80.0-97.0); Mean Platelet Volume 11.5 fL (9.5-12.2); Monocytes # (A) 0.53 X 10*3/uL (0.20-1.00); Monocytes % (A) 7.7 %; NRBC Per 100 WBC 0 /100 WBCS (0.0-0.0); Neutrophils # (A) 2.64 X 10*3/uL (1.80-7.70); Neutrophils % (A) 38.2 %; Platelet Count 175 X 10*3/uL (140-440)
[2021-08-07 18:28] LABS: ALT 15 U/L (8-44); AST 18 U/L (13-35); Albumin 4.7 g/dL (3.8-4.9); Albumin/Globulin Ratio 1.74 (1.60-3.17); Alkaline Phosphatase 52 U/L (41-126); BUN/Creat Ratio 9.33 Ratio (12.00-20.00); Blood Urea Nitrogen 8.4 mg/dL (9.0-27.0); Calcium 9.6 mg/dL (8.7-10.3); Carbon Dioxide 21.7 mmol/L (20.0-27.5); Chloride 107 mmol/L (96-109); Chol/HDL Ratio 3.79 Ratio; Globulin 2.7 g/dL (1.6-3.3); Glucose 77 mg/dL (70-110); LDL Cholesterol,Calculated 109.6 mg/dL (0.0-131.0); Magnesium 1.9 mg/dL (1.5-2.4); Non-African American GFR(CKD) 88.9 (60.0-200.0); Potassium 4.2 mmol/L (3.5-5.5); Sodium 141 mmol/L (135-145); Total Protein 7.4 g/dL (6.2-8.2); VLDL Calculation 16.26 mg/dL (5.00-40.00)
== END | disposition home or self-care (01) ==
LOC: LABWHC1 10:45
PROVIDERS: ATTEND Nurse Practitioner Family
DX: Z13.220 Encounter for screening for lipoid disorders (principal); R00.2 Palpitations
CPT/HCPCS: 36415; 80053; 80061; 83735; 84439; 84443; 85025

== ENCOUNTER → 2022-04-12 | Outpatient (CLI) | payer OTHER | END | disposition home or self-care (01) | LOC: LABWHC1 12:46 | DX: O92.6 Galactorrhea (principal) | CPT/HCPCS: 36415; 84146 ==

== ENCOUNTER → 2022-04-27 | Outpatient (CLI) | payer OTHER ==
--- NOTE | 2022-04-27 15:31 | USB ---
Reason for Exam: Clinical finding. Technique: Method: Whole Breast Handheld. Findings: The whole breast of both breasts, the axilla of both breasts and the retroareolar of both breasts were scanned. A complete US of all four quadrants of the bilateral breast and retro-areolar region were reviewed. Some prominence of the ducts in the subareolar region is seen bilaterally. Right axillary region shows prominent but benign-appearing right axillary lymph node. No concerning solid or cystic mass or suspicious fluid collections is seen in either breast. Overall Assessment: Benign, BI-RAD 2 Management: Screening Mammogram of both breasts at age 40. Manage patient's symptoms clinically. Results were given to the patient verbally at the time of exam. Electronically signed and approved by: Saturnino Hernandes M.D.
== END | disposition home or self-care (01) ==
LOC: RADUSWWP 14:24
PROVIDERS: ATTEND Obstetrics & Gynecology
DX: O92.6 Galactorrhea (principal); Z80.3 Family history of malignant neoplasm of breast

== ENCOUNTER → 2022-07-20 | Outpatient (CLI) | payer OTHER ==
[2022-07-20 14:53] LABS: T4, Free (Free Thyroxine) 1.36 ng/dL (0.800-1.800)
== END | disposition home or self-care (01) ==
LOC: LABWHC1 07:37
PROVIDERS: ATTEND Internal Medicine Interventional Cardiology
DX: I10 Essential (primary) hypertension (principal); R00.1 Bradycardia, unspecified; R00.2 Palpitations
CPT/HCPCS: 36415; 84439; 84443

== ENCOUNTER → 2024-03-09 | Outpatient (CLI) | payer BC ==
--- NOTE | 2024-03-09 14:57 | XR ---
EXAMINATION TYPE: XR lumbar spine 3V DATE OF EXAM: 03/09/2024 Comparison: None Clinical History: 28-year-old female M5 4.5 M54.5 LUMBAR PAIN Findings: 5 lumbar type vertebral bodies. There is accentuated lower lumbar lordosis. Vertebral body heights an d disc interspaces are preserved and alignment is maintained. Impression: Accentuated lower lumbar lordosis. No vertebral compression collapse or malalignment. [facility], , 03/09/2024 2:55 PM
== END | disposition home or self-care (01) ==
LOC: RADXRMAIN 09:58
PROVIDERS: ATTEND Family Medicine
CPT/HCPCS: 72100

== ENCOUNTER → 2024-03-09 | Outpatient (CLI) | payer BC ==
[2024-03-09 16:38] LABS: Chol/HDL Ratio 3.31 Ratio; LDL Cholesterol,Calculated 111.3 mg/dL (0.0-131.0)
[2024-03-09 16:39] LABS: ALT 23 U/L (8-44); AST 22 U/L (13-35); BUN/Creat Ratio 14.12 Ratio (12.00-20.00); Blood Urea Nitrogen 11.3 mg/dL (9.0-27.0); Calcium 9.9 mg/dL (8.7-10.3); Carbon Dioxide 24.4 mmol/L (21.6-31.8); Chloride 102 mmol/L (96-109); Glucose 88 mg/dL (70-110); Sodium 137 mmol/L (135-145)
[2024-03-09 17:14] LABS: HCT 47.3 % (37.2-46.3); HGB 15.7 g/dL (12.0-15.0); MCHC 33.2 g/dL (32.0-37.0); MCV 96.3 FL (80.0-97.0); Mean Platelet Volume 10.9 FL (9.5-12.2); NRBC Per 100 WBC 0 X 10*3/uL (0.00-0.01); Platelet Count 225 X 10*3/uL (140-440); RBC 4.91 X 10*6/uL (4.10-5.20); RDW 13.3 % (11.5-14.5); WBC 8.07 X 10*3/uL (4.50-10.00)
== END | disposition home or self-care (01) ==
LOC: LABWHC1 09:56
PROVIDERS: ATTEND Internal Medicine Interventional Cardiology
DX: E78.2 Mixed hyperlipidemia (principal)
CPT/HCPCS: 36415; 80048; 80061; 84450; 84460; 85027

== ENCOUNTER → 2024-05-25 | Outpatient (CLI) | payer BC ==
[2024-05-25 10:50] LABS: HCT 45.5 % (37.2-46.3); HGB 15.4 g/dL (12.0-15.0); MCH 31.5 pg (27.0-32.0); MCHC 33.8 g/dL (32.0-37.0); Mean Platelet Volume 9.9 FL (9.5-12.2); NRBC Per 100 WBC 0 X 10*3/uL (0.00-0.01); Platelet Count 249 X 10*3/uL (140-440); RBC 4.89 X 10*6/uL (4.10-5.20); RDW 12.5 % (11.5-14.5); WBC 5.92 X 10*3/uL (4.50-10.00)
[2024-05-25 21:36] LABS: Blood Urea Nitrogen 9.7 mg/dL (9.0-27.0); Calcium 9.7 mg/dL (8.7-10.3); Carbon Dioxide 25.4 mmol/L (21.6-31.8); Chloride 104 mmol/L (96-109); Chol/HDL Ratio 3.28 Ratio; Glucose 99 mg/dL (70-110); LDL Cholesterol,Calculated 97.5 mg/dL (0.0-131.0); Sodium 141 mmol/L (135-145); T4, Free (Free Thyroxine) 1.13 ng/dL (0.80-1.80)
== END | disposition home or self-care (01) ==
LOC: LABWHC1 07:55
PROVIDERS: ATTEND Internal Medicine Interventional Cardiology
DX: E78.5 Hyperlipidemia, unspecified (principal)
CPT/HCPCS: 36415; 80048; 80061; 81596; 84439; 84443; 85027

== ENCOUNTER → 2024-05-25 | Outpatient (CLI) | payer BC ==
--- NOTE | 2024-05-25 08:59 | XR ---
EXAMINATION TYPE: XR shoulder complete LT DATE OF EXAM: 05/25/2024 8:30 AM COMPARISON: None. CLINICAL INDICATION: Female, 28 years old with history of M25.512PAIN IN LEFT SHOULDER, TECHNIQUE: XR shoulder complete LT 4 view(s) obtained. FINDINGS: The humeral head articulates with the glenoid. The acromio-clavicular junction is normal. No acute fractures or dislocations are evident. A follow up study can be performed 7-10 days from acute trauma for continued pain. MRI can be perfor med if soft tissue evaluation would be of benefit. IMPRESSION: 1. No acute osseous shoulder abnormality. [facility], , 05/25/2024 8:57 AM
== END | disposition home or self-care (01) ==
LOC: RADXRMAIN 07:50
PROVIDERS: ATTEND Family Medicine
DX: M25.512 Pain in left shoulder (principal)